=== PATIENT | male | born 1980 | race Caucasian/White ===

== ENCOUNTER 2016-02-20 12:13 | Emergency (ER) | payer MEDICARE, MEDICAID ==
[~2016-02-20] VITALS: Ht 190.5 cm; Wt 130.0 kg
[2016-02-20 12:22] VITALS: Ht 190.5 cm; Wt 130.0 kg
[2016-02-20] MEDS ORDERED: HALOPERIDOL 5 MG INJ ONE (12:53)
[2016-02-20] MEDS ORDERED: LORAZEPAM 2 MG INJ ONE (12:53)
[2016-02-20] MEDS ORDERED: DIPHENHYDRAMINE 50 MG INJ ONE (12:53)
[2016-02-20] MEDS ORDERED: HALOPERIDOL 5 MG INJ IM ONE ×2 (13:00→14:00)
[2016-02-20] MEDS ORDERED: LORAZEPAM 2 MG INJ IM ONE ×2 (13:00→14:30)
[2016-02-20] MEDS ORDERED: DIPHENHYDRAMINE 50 MG INJ IM ONE (13:00)
--- NOTE | 2016-02-20 14:54 | ERA ---
ER Documentation Chief Complaint Date/Time DATE: 02/20/16 TIME: 14:47 Chief Complaint PT BROUGHT IN PER PD FOR AGITATION, PT CALM AT THIS TIME HPI This 35-year-old male is brought in by PD after a call from his mother were the patient is refusing tetanus H getting medications for bipolar and schizophrenia. He was threatening to kill her. The police arrived he threatened to kill them was very agitated and aggressive. Police have drawn there happens including pistol and tasers he was threatening to kill them if they try to take him to the hospital.. According to the police department and took several minutes to calm him down enough to get him in the car. Patient himself denies any physical pain or symptoms. States he doesn't have to get psychiatric treatment if he doesn't want to. Police placed him on a 5150 hold. ROS All systems reviewed and are negative except as per history of present illness. Medications Home Meds No Active Prescriptions or Reported Meds Allergies Allergies: Coded Allergies: No Known Allergy (Unverified , 02/20/16) PMhx/Soc History of Surgery: No Anesthesia Reaction: No Hx Neurological Disorder: No Hx Respiratory Disorders: No Hx Cardiac Disorders: No Hx Psychiatric Problems: No Hx Miscellaneous Medical Probl: Yes (Agitation) Hx Alcohol Use: No Hx Substance Use: No Hx Tobacco Use: No Smoking Status: Never smoker Physical Exam Vitals Vital Signs Date Time Temp Pulse Resp B/P Pulse Ox O2 Delivery O2 Flow Rate FiO2 02/20/16 12:22 98.2 103 17 142/72 98 Physical Exam Const: [] No physical distress, agitated Head: Atraumatic Eyes: Normal Conjunctiva on the EOMI, PERRLA ENT: Normal External Ears, Nose and Mouth. Neck: Full range of motion..~ No meningismus. Resp: Clear to auscultation bilaterally Cardio: Regular rate and rhythm, no murmurs Abd: Soft, non tender, non distended. Normal bowel sounds Skin: No petechiae or rashes Back: No midline or flank tenderness Ext: No cyanosis, or edema Neur: Awake and alert and oriented 3, no focal neurological deficits Psych: Very agitated and angry Results 24 hrs Current Medications Medications (Trade) Dose Ordered Sig/Fannie Route PRN Reason Start Time Stop Time Status Last Admin Dose Admin Diphenhydramine HCl (Benadryl) 50 mg STK-MED ONCE .ROUTE 02/20/16 12:53 02/20/16 12:54 DC Haloperidol (Haldol) 5 mg STK-MED ONCE .ROUTE 02/20/16 12:53 02/20/16 12:54 DC Lorazepam (Ativan) 2 mg STK-MED ONCE .ROUTE 02/20/16 12:53 02/20/16 12:54 DC Haloperidol (Haldol) 5 mg ONCE ONCE IM 02/20/16 13:00 02/20/16 13:02 DC 02/20/16 13:10 Diphenhydramine HCl (Benadryl) 50 mg ONCE ONCE IM 02/20/16 13:00 02/20/16 13:02 DC 02/20/16 13:10 Lorazepam (Ativan) 2 mg ONCE ONCE IM 02/20/16 13:00 02/20/16 13:02 DC 02/20/16 13:10 Haloperidol (Haldol) 5 mg ONCE ONCE IM 02/20/16 14:00 02/20/16 14:01 DC Lorazepam (Ativan) 4 mg ONCE ONCE IM 02/20/16 14:30 02/20/16 14:31 DC Procedures/MDM Patient with history of schizophrenia and bipolar not taking medications including to murder people. She is refusing take medications and very unstable code his mother he may be having bipolar manic episode. Transferred from [facility] people leave medications and strain him. Is given 5 mg of Haldol IM, 50 mg of Benadryl and 2 mild grams of Ativan IM. He calmed down only somewhat on these medications. Was refusing blood draws. Going to administer 5 mg of Haldol. He'll receive a tele-psych consult and is artery and a 5150 hold. Awaiting laboratories for medical clearance. This point the patient seems stable physically although mentally he is unstable. No signs of trauma. Patient being reasonably intermittently between bouts of aggression. Departure Diagnosis: Primary Impression: Restlessness and agitation Additional Impressions: Homicidal behavior Bipolar depression Bipolar I disorder with denys Condition: Stable DEANDREEDSONLUPILLO DO Feb 20, 2016 14:54
[2016-02-20 18:26] LABS: ADD UMIC NO; URINE BILIRUBIN (Dip) NEGATIVE (NEGATIVE); URINE BLOOD (Dip) NEGATIVE (NEGATIVE); URINE COLOR LT. YELLOW (YELLOW); URINE GLUCOSE (Dip) NEGATIVE (NEGATIVE); URINE KETONES (Dip) NEGATIVE (NEGATIVE); URINE LEUKOCYTE ESTERASE (Dip) NEGATIVE (NEGATIVE); URINE NITRITE (Dip) NEGATIVE (NEGATIVE); URINE TOTAL PROTEIN (Dip) NEGATIVE (NEGATIVE); URINE UROBILINOGEN (Dip) 0.2 E.U./dL (0.1-1.0)
[2016-02-20 18:33] LABS: ALBUMIN 4.5 g/dl (3.3-4.9)
[2016-02-20 18:34] LABS: CHLORIDE 105 mmol/L (97-110); POTASSIUM 4.3 mmol/L (3.5-5.1); SODIUM 141 mmol/L (135-144)
[2016-02-20 18:36] LABS: ALANINE AMINOTRANSFERASE 22 IU/L (13-69); ALBUMIN/GLOBULIN RATIO 1.09; ALKALINE PHOSPHATASE 94 IU/L (42-121); ANION GAP 16 (8-16); ASPARTATE AMINO TRANSFERASE 26 IU/L (15-46); BILIRUBIN,INDIRECT 0.5 mg/dl (0-1.1); BILIRUBIN,TOTAL 0.5 mg/dl (0.2-1.3); BLOOD UREA NITROGEN 11 mg/dl (7-20); CARBON DIOXIDE 24 mmol/L (21-31); CREATININE 0.71 mg/dl (0.61-1.24); GLUCOSE 82 mg/dl (70-220); TOTAL PROTEIN 8.6 g/dl (6.1-8.1)
[2016-02-20 18:44] LABS: ACETAMINOPHEN < 10.0 ug/ml (10.0-30.0)
[2016-02-20 18:45] LABS: BARBITURATES Negative (NEGATIVE); BENZODIAZEPINES Negative (NEGATIVE); CANNABINOIDS Positive (NEGATIVE); COCAINE Negative (NEGATIVE); ETHANOL < 10.0 mg/dl; OPIATES Negative (NEGATIVE); SALICYLATE < 1.0 mg/dl (5.0-30.0)
[2016-02-20 18:49] LABS: BASOPHILS % 0.3 % (0.0-2.0); EOSINOPHILS # 0.2 10^3/ul (0.0-0.5); EOSINOPHILS % 1.7 % (0.0-7.0); HEMOGLOBIN 16.1 g/dl (14.0-18.0); LYMPHOCYTES # 1.9 10^3/ul (0.8-2.9); LYMPHOCYTES % 13.6 % (15.0-51.0); MEAN CORPUSCULAR HEMOGLOBIN 29.6 pg (29.0-33.0); MEAN CORPUSCULAR HGB CONC 34.3 g/dl (32.0-37.0); MEAN CORPUSCULAR VOLUME 86.2 fl (82.0-101.0); MEAN PLATELET VOLUME 7.9 fl (7.4-10.4); NEUTROPHIL # 10.7 10^3/ul (1.6-7.5); NEUTROPHILS % 77.4 % (39.0-77.0); PLATELET COUNT 305 10^3/UL (140-440); RED BLOOD COUNT 5.45 10^6/ul (4.70-6.10); RED CELL DISTRIBUTION WIDTH 13.2 % (11.5-14.5); UNCORRECTED WBC 13.8 10^3/ul (4.8-10.8); WHITE BLOOD COUNT 13.8 10^3/ul (4.8-10.8)
[2016-02-20 19:00] LABS: CONDITION 1
--- NOTE | 2016-02-20 19:22 | PSY ---
Date/Time of Note Date/Time of Note DATE: 02/20/16 TIME: 19:15 Psychiatric Subjective Eval Consent Pt consented to telemedicine: No (Patient was "sleeping." ) Subjective Evaluation Patient location: emergency Chief Complaint: PT BROUGHT IN PER PD FOR AGITATION, PT CALM AT THIS TIME Reason for consult: Agitation, patient on hold History of present illness Patient appeared to be sleeping and would not wake to nurse shaking him. He was snoring throughout. I discussed his case with the ER attending and reviewed his medical and social work notes. He apparently has a history of bipolar disorder and stopped taking his medication 10 months ago. He was agitated today - with his mother. His mother called the police. When the police came, he threatened his mother and the police. He was brought to the ER. He has eloped from the ER twice, has been combative, and has had to be medicated. Twenty minutes prior to my interview he was talking with the ER attending For me, however, he snored throughout. He is on a 5150. Past psychiatric history Has been hospitalized once before and placed on a 5150. This apparently involved conflict with his father. 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 ) Speech: Other (None - snoring) On 72 hour hold: Yes Insight: Severe Judgement: Severe Laboratory Results Laboratory Tests Test 02/20/16 18:10 Acetaminophen Level < 10.0ug/ml Alanine Aminotransferase (ALT/SGPT) 22IU/L Albumin 4.5g/dl Albumin/Globulin Ratio 1.09 Alkaline Phosphatase 94IU/L Anion Gap 16 Aspartate Amino Transf (AST/SGOT) 26IU/L Basophils # 0.010^3/ul Basophils % 0.3% Blood Urea Nitrogen 11mg/dl Calcium Level 10.0mg/dl Carbon Dioxide Level 24mmol/L Chloride Level 105mmol/L Creatinine 0.71mg/dl Direct Bilirubin 0.00mg/dl Eosinophils # 0.210^3/ul Eosinophils % 1.7% Ethyl Alcohol Level < 10.0mg/dl Globulin 4.10g/dl Glucose Level 82mg/dl Hematocrit 47.0% Hemoglobin 16.1g/dl Indirect Bilirubin 0.5mg/dl Lymphocytes # 1.910^3/ul Lymphocytes % 13.6% Mean Corpuscular Hemoglobin 29.6pg Mean Corpuscular Hemoglobin Concent 34.3g/dl Mean Corpuscular Volume 86.2fl Mean Platelet Volume 7.9fl Monocytes # 1.010^3/ul Monocytes % 7.0% Neutrophils # 10.710^3/ul Neutrophils % 77.4% Nucleated Red Blood Cells # 0.010^3/ul Nucleated Red Blood Cells % 0.0/100WBC Platelet Count 46420^3/UL Potassium Level 4.3mmol/L Red Blood Count 5.4510^6/ul Red Cell Distribution Width 13.2% Salicylates Level < 1.0mg/dl Sodium Level 141mmol/L Total Bilirubin 0.5mg/dl Total Protein 8.6g/dl Urine Amphetamines Screen Negative Urine Barbiturates Negative Urine Benzodiazepines Screen Negative Urine Bilirubin NEGATIVE Urine Cannabinoids Positive Urine Clarity CLEAR Urine Cocaine Screen Negative Urine Color LT. YELLOW Urine Glucose NEGATIVE% Urine Hemoglobin NEGATIVE Urine Ketones NEGATIVE Urine Leukocyte Esterase NEGATIVE Urine Nitrite NEGATIVE Urine Opiates Screen Negative Urine Specific Magazine 1.015 Urine Total Protein NEGATIVE Urine Urobilinogen 0.2 E.U./dL Urine pH 6.0 White Blood Count 13.810^3/ul Assessment and Plan Assessment/Diagnosis [place] I: Unspecified Bipolar Disorder Recommendation/Plan Medication Management Per inpatient psychiatry Pt. Caregiver/Family Education N./A Follow-up/Disposition Recommend transfer to inpatient psychiatry. Patient is on 5150 and I would recommend continuing the hold. Patient's behavior is consistent with denys and he has threatened family and others. He has not demonstrated that he can act in a safe manner. 5150 Recommendation: Continue Hold PHONG JENKINS Feb 20, 2016 19:22
[2016-02-20 21:05] VITALS: BP 132/77; PULSE 92; RESP 16; TEMP 98
== END 2016-02-20 21:09 ==
LOC: E/R 12:13
DX: R45.1 Restlessness and agitation (principal); R45.850 Homicidal ideations; F31.9 Bipolar disorder, unspecified
CPT/HCPCS: 80053; 80306; 80307; 81003; 85025; 96372; 99285; J1200; J1630; J2060